=== PATIENT | female | born 1995 | race Caucasian/White ===

== ENCOUNTER 2018-01-18 22:55 | Emergency (ER) | payer MEDICAID ==
[2018-01-19] MEDS: ACETAMINOPHEN 325 MG TAB PO (00:45)
[2018-01-19] MEDS: ONDANSETRON (ODT) 4 MG TAB ODT (00:46)
[2018-01-19 00:55] LABS: ADD MAN DIFF? NO
[2018-01-19 00:58] LABS: BASOPHILS % 0.3 % (0.0-2.0); EOSINOPHILS # 0.2 10^3/ul (0.0-0.5); EOSINOPHILS % 1.7 % (0.0-7.0); HEMATOCRIT 36.9 % (37.0-47.0); HEMOGLOBIN 12.9 g/dl (12.0-16.0); LYMPHOCYTES # 1.4 10^3/ul (0.8-2.9); LYMPHOCYTES % 12.9 % (15.0-51.0); MEAN CORPUSCULAR HEMOGLOBIN 30.5 pg (29.0-33.0); MEAN CORPUSCULAR VOLUME 87.2 fl (82.0-101.0); MEAN PLATELET VOLUME 10.6 fl (7.4-10.4); MONOCYTE # 0.7 10^3/ul (0.3-0.9); MONOCYTES % 6.1 % (0.0-11.0); NEUTROPHIL # 8.8 10^3/ul (1.6-7.5); NEUTROPHILS % 78.5 % (39.0-77.0); PLATELET COUNT 237 10^3/UL (140-415); RED BLOOD COUNT 4.23 10^6/ul (4.20-5.40); RED CELL DISTRIBUTION WIDTH 14.3 % (11.5-14.5)
[2018-01-19 00:58] LABS: WHITE BLOOD COUNT 11.2 10^3/ul (4.8-10.8)
[2018-01-19 01:12] LABS: ADD UMIC YES; UR ASCORBIC ACID NEGATIVE (NEGATIVE); UR BILIRUBIN (Dip) NEGATIVE (NEGATIVE); UR BLOOD (Dip) 1+ mg/dL (NEGATIVE); UR CLARITY CLEAR (CLEAR); UR COLOR YELLOW (YELLOW); UR GLUCOSE (Dip) NEGATIVE (NEGATIVE); UR KETONES (Dip) TRACE mg/dL (NEGATIVE); UR LEUKOCYTE ESTERASE (Dip) NEGATIVE Leu/ul (NEGATIVE); UR MUCUS FEW /HPF (NONE SEEN); UR NITRITE (Dip) NEGATIVE (NEGATIVE); UR RBC 2 /HPF (0-5); UR SPECIFIC GRAVITY (Dip) 1.015 (1.003-1.030); UR TOTAL PROTEIN (Dip) NEGATIVE (NEGATIVE); UR UROBILINOGEN (Dip) NEGATIVE (NEGATIVE); UR WBC 1 /HPF (0-5)
[2018-01-19 01:17] LABS: ALANINE AMINOTRANSFERASE 35 IU/L (13-69); ALBUMIN 3.8 g/dl (3.3-4.9); ALBUMIN/GLOBULIN RATIO 1.18; ALKALINE PHOSPHATASE 66 IU/L (42-121); ANION GAP 11 (8-16); ASPARTATE AMINO TRANSFERASE 22 IU/L (15-46); BILIRUBIN,INDIRECT 0.2 mg/dl (0-1.1); BILIRUBIN,TOTAL 0.2 mg/dl (0.2-1.3); BLOOD UREA NITROGEN 3 mg/dl (7-20); CALCIUM 9.4 mg/dl (8.4-10.2); CARBON DIOXIDE 25 mmol/L (21-31); CHLORIDE 106 mmol/L (97-110); CREATININE 0.46 mg/dl (0.44-1.00); GLUCOSE 91 mg/dl (70-220); POTASSIUM 3.8 mmol/L (3.5-5.1); SODIUM 138 mmol/L (135-144)
== END 2018-01-19 02:06 | disposition home or self-care (01) ==
LOC: FTE 22:55
DX: O99.512 Diseases of the respiratory system complicating pregnancy, second trimester (principal); J02.9 Acute pharyngitis, unspecified; O21.9 Vomiting of pregnancy, unspecified; R10.9 Unspecified abdominal pain; Z3A.18 18 weeks gestation of pregnancy
CPT/HCPCS: 76805; 80053; 81001; 85025; 93005; 99284-25

== ENCOUNTER 2018-09-21 01:50 | Emergency (ER) | payer MEDICAID ==
[2018-09-21] MEDS: ACETAMINOPHEN 500 MG TAB PO (04:45)
[2018-09-21] MEDS: CEFTRIAXONE 1 GM INJ IM (04:45)
== END 2018-09-21 06:10 | disposition home or self-care (01) ==
LOC: FTE 01:50
DX: N64.4 Mastodynia (principal); N61.0 Mastitis without abscess
CPT/HCPCS: 96372; 99284-25

== ENCOUNTER 2019-01-04 20:15 | Emergency (ER) | payer MEDICAID ==
[2019-01-04] MEDS: METHOCARBAMOL 750 MG TAB PO (22:14)
[2019-01-04] MEDS: IBUPROFEN 600 MG TAB PO (22:15)
== END 2019-01-05 00:20 | disposition home or self-care (01) ==
LOC: FTE 01-05 00:20
DX: M54.6 Pain in thoracic spine (principal)
CPT/HCPCS: 99282; Z7502